=== PATIENT | male | born 1955 | race Two or more races ===

== ENCOUNTER 2022-04-16 01:06 | Inpatient (IN) | payer BC, MEDICARE, OTHER ==
[~2022-04-16] VITALS: Ht 177.8 cm; Wt 108.9 kg
--- NOTE | 2022-04-16 01:30 | NUR ---
[id number] FROM HOME FOR C/O CHEST TUBE MALFUNCTION, RAN OUT OF DRAINAGE COLLECTION BAGS X2DAYS AGO AND BEGAN NOTICING BUBBLING BENEATH CHEST TUBE DRESSING. CHEST TUBE INSERTED X1 WEEK AGO FOR PNEUMONIA. PT DENIES AND SOB AT THIS TIME, HX OF LUNG CA WITH CHRONIC O2 USE 90% ON 6LPM. PT AWAKE AND ALERT X4 BREATHING EVEN AND UNLABORED. PLACED ON MONITOR AND V/S WNL.
--- NOTE | 2022-04-16 01:35 | NUR ---
covid swab collected and sent to lab.
--- NOTE | 2022-04-16 01:41 | NUR ---
AT BEDSIDE FOR EVAL
[2022-04-16 02:02] LABS: BASOPHILS % (AUTO) 0.2 % (0.0-2.0); EOSINOPHILS % (AUTO) 2.3 % (0.0-6.0); HEMATOCRIT 41 % (39-51); HEMOGLOBIN 13.2 g/dL (13.5-17.5); LYMPHOCYTES # (AUTO) 0.6 K/uL (0.8-4.8); LYMPHOCYTES % (AUTO) 6.4 % (20.0-44.0); MEAN CORPUSCULAR HGB CONC 32 g/dl (31.0-36.0); MEAN CORPUSCULAR VOLUME 95 fL (80-96); NEUTROPHILS % (AUTO) 81.1 % (43.0-81.0); PLATELET COUNT (AUTO) 127 K/uL (150-450); RED BLOOD CELL COUNT(AUTO) 4.31 MIL/uL (4.5-6.0); WHITE BLOOD COUNT (AUTO) 9.8 K/uL (4.3-11.0)
[2022-04-16 02:37] LABS: ALANINE AMINOTRANSFERASE 48 U/L (12-78); ALKALINE PHOSPHATASE 168 U/L (46-116); ASPARTATE AMINOTRANSFERASE 59 U/L (15-37); BILIRUBIN,DIRECT 0.3 mg/dL (0.0-0.2); BILIRUBIN,TOTAL 0.5 mg/dL (0.2-1.0); CARBON DIOXIDE 38 mmol/L (21-32); CHLORIDE 99 mmol/L (98-107); GLUCOSE 205 mg/dL (74-106); POTASSIUM 4.6 mmol/L (3.5-5.1); SODIUM SERUM 136 mmol/L (136-145); TOTAL PROTEIN, SERUM 5.8 g/dL (6.4-8.2); UREA NITROGEN, BLOOD 23 mg/dL (7-18)
[2022-04-16 03:50] LABS: CALCIUM, SERUM 8.5 mg/dL (8.5-10.1)
--- NOTE | 2022-04-16 05:08 | NUR ---
dressing applied on the chest tube site.
[2022-04-16] MEDS ORDERED: MORPHINE SULFATE INJ 2 MG/ML DISP.SYRIN IV PRN (05:30)
[2022-04-16] MEDS ORDERED: ACETAMINOPHEN 325 MG TABLET PO PRN (05:30)
[2022-04-16] MEDS ORDERED: FUROSEMIDE 40 MG/4 ML VIAL IV ONE (05:30)
[2022-04-16] MEDS ORDERED: DEXTROSE 50%-WATER 50 ML DISP.SYRIN IV PRN (05:30)
[2022-04-16] MEDS ORDERED: hydrALAZINE HCL IV 20 MG VIAL IV PRN (05:30)
[2022-04-16] MEDS ORDERED: ONDANSETRON HCL/PF 4 MG/2 ML VIAL IVP PRN (05:30)
[2022-04-16] MEDS ORDERED: IV NS 0.9% 1,000 ML IV SCH (05:30)
[2022-04-16] MEDS ORDERED: INSULIN REGULAR, HUMAN 100 UNIT/ML 3 ML VIAL SQ PRN (05:30)
[2022-04-16] MEDS ORDERED: PIPERACILLIN /TAZOBACTAM 3.375 G in IV D5W 50 ML IV ONE (05:30)
[2022-04-16] MEDS ORDERED: PIPERACILLIN /TAZOBACTAM 3.375 G VIAL IV ONE (05:31)
[2022-04-16] MEDS ORDERED: FUROSEMIDE 40 MG/4 ML VIAL ONE (05:42)
[2022-04-16] MEDS ORDERED: FUROSEMIDE 20 MG/2 ML VIAL IV ONE (06:00)
[2022-04-16] MEDS: BLOOD SUGAR DIAGNOSTIC 1 EACH STRIP IN SCH ×2 (07:30→11:25)
--- NOTE | 2022-04-16 07:38 | NUR ---
REPORT RECEIVED FROM MOOSE GOLDMAN.
--- NOTE | 2022-04-16 07:40 | NUR ---
No updated lab coagulation available for Thoracentesis. ER was informed and will order stat lab.
[2022-04-16 08:00] VITALS: BP 135/79
--- NOTE | 2022-04-16 08:16 | NUR ---
REPORT GIVEN TO NESSA VIRK FOR CRYSTAL
--- NOTE | 2022-04-16 08:30 | NUR ---
MS MANAGER IMPLEMENTATION NOTE PT ADMITTED TO UNIT VIA [facility] AT 0825 WITH DIAGNOSIS OF LUNG CANCER, PLEURAL EFFUSION. A/O X4. ABLE TO MAKE NEEDS KNOWN. PT ORIENTED TO STAFF AND ROOM. V/S TAKEN AND RECORDED. PT ON 5L OF OXYGEN VIA SIMPLE MASK, TOLERATING WELL, BREATHING EVEN AND UNLABORED, NO ACUTE RESPIRATORY DISTRESS NOTED. SKIN HAS SEVERAL EXCORIATIONS, SCARRINGS AND DISCOLORATIONS NOTED ON BILATERAL UPPER AND LOWER EXTREMITIES AND CHEST. IV ACCESS NOTED ON RAC #18G INTACT AND PATENT WIT NS @ 100ML/HR STARTED PER MD ORDER. LUNGS SOUNDS DIMINISHED UPON AUSCULTATION. ABDOMEN FIRM AND DISTENDED WITH MILD TENDERNESS NOTED ON RIGHT UPPER QUADRANT WITH HYPOACTIVE SOUNDS. SAFETY PRECAUTIONS IMPLEMENTED: BED IN LOWEST LOCKED POSITION, SIDE RAILS UP X2 CALL LIGHT AND TRAY TABLE WITHIN PLACED W/I EASY REACH OF PT. WILL CONTINUE TO MONITOR PT ACCORDINGLY.
[2022-04-16] MEDS ORDERED: ENOXAPARIN SODIUM 40 MG/0.4 ML DISP.SYRIN SQ SCH (09:00)
[2022-04-16] MEDS ORDERED: ALBUMIN 25% 25 GM in PREMIX 1 EA IV SCH (09:00)
[2022-04-16] MEDS ORDERED: FUROSEMIDE 20 MG/2 ML VIAL IV SCH (09:00)
--- NOTE | 2022-04-16 11:04 | NUR ---
RN NOTES 0730 GLUCOSE TEST COULDNT BE TAKEN, BLOOD DRAW TAKEN BY LAB. WILL TAKE AT 11 AM. [facility] HAS BEEN PLACE ON HOLD WELL D/T SURGERY.
--- NOTE | 2022-04-16 11:05 | NUR ---
RN NOTES RECEIVED A CALL FROM SISTER CORRALES, ASKING REGARDING THE DC DATE OF THE PATIENT, CHARGE NURSE MONIKA SPOKE WITH THE SISTER TO INFORM REGARDING THE PLACE. PATIENT HAS SIGNED CONSENTS FOR [facility]ER[facility] GUIDED THORACENTESIS. CALLED ERNESTO FROM [facility] TO INFORM ABOUT THE SIGNING OF THE CONSENTS.
[2022-04-16 12:54] LABS: ABG PCO2 59.8 mmHg (35.0-45.0); ABG PH 7.375 (7.350-7.450); ABG PO2 75.2 mmHg (75.0-100.0); COHb 0.3 % (0.5-1.5); MetHb 0.3 % (0.0-1.5); O2Hb 93.7 % (94.0-97.0); SITE, ABG Right Radial; VENT MODE, BG 10L SM
[2022-04-16] MEDS ORDERED: CEFEPIME 2 GM in IV D5W 100 ML IV SCH (13:00)
[2022-04-16] MEDS ORDERED: CEFEPIME 1 GM in IV D5W 50 ML IV SCH (13:00)
[2022-04-16] MEDS ORDERED: methylPREDNISolone SOD SUCC 125 MG/2ML VIAL IV SCH (15:00)
[2022-04-16] MEDS ORDERED: IPRATROPIUM NEB FS 0.5 MG/2.5 ML AMPUL.NEB NEB SCH (15:30)
[2022-04-16] MEDS ORDERED: ALBUTEROL HALF STRENGTH 1.25 MG/3 ML VIAL.NEB NEB SCH (17:00)
--- NOTE | 2022-04-16 21:07 | NUR ---
AMA NOTES PT IS AOX4, VERBALIZED THAT HE WANTS TO LEAVE THE HOSPITAL AMA AND WILL BE PICKED UP BY SISTER ANTONI AND SON. EXPLAINED RISKS AND CONSEQUENCES OF LEAVING THE HOSPITAL, PATIENT VERBALIZED UNDERSTANDING AND PATIENT STILL INSISTED OF LEAVING AMA. MD MADE AWARE, PT SIGNED AMA FORM. REMOVED IV ACCESS, NO BLEEDING NOTED, NO BELONGINGS BUT GIVEN GOWN AND SOCKS,NAME ARM BAND REMOVED. PT LEFT UNIT ACCOMPANIED BY SISTER ANTONI VIA WC WITH 5L OF OXYGEN IN PLACE. ACCOMPANIED BY ME OUTSIDE OF HOSPITAL LOBBY AND WAS PICKED UP BY SON AT 1455. CHARGE NURSE AND MD AWARE.
== END 2022-04-16 15:00 | disposition home or self-care (01) | DRG 919 ==
LOC: ER 01:09 → TELE 08:00
PROVIDERS: ADMIT Internal Medicine; ATTEND Internal Medicine
DX: T85.618A Breakdown (mechanical) of other specified internal prosthetic devices, implants and grafts, initial encounter (principal); J18.9 Pneumonia, unspecified organism; C34.91 Malignant neoplasm of unspecified part of right bronchus or lung; C78.7 Secondary malignant neoplasm of liver and intrahepatic bile duct; E66.2 Morbid (severe) obesity with alveolar hypoventilation; J44.0 Chronic obstructive pulmonary disease with (acute) lower respiratory infection; J91.0 Malignant pleural effusion; J93.83 Other pneumothorax; J98.11 Atelectasis; Y84.8 Other medical procedures as the cause of abnormal reaction of the patient, or of later complication, without mention of misadventure at the time of the procedure; Y92.009 Unspecified place in unspecified non-institutional (private) residence as the place of occurrence of the external cause; F17.200 Nicotine dependence, unspecified, uncomplicated; E87.70 Fluid overload, unspecified; I10 Essential (primary) hypertension
CPT/HCPCS: 36415; 36600; 71046; 71250-TC; 76604-TC; 80048-TC; 80076-TC; 82962-TC; 83880; 84484-TC; 85025-TC; 85730-TC; 87040-TC; A4216; C9803; G0378; J0692; J1815; J1940; J2543; J7030; J7060; P9047